=== PATIENT | female | born 2000 | race Caucasian/White ===

== ENCOUNTER 2022-02-16 17:01 | Emergency (ER) | payer OTHER, SELFPAY ==
[2022-02-16 17:07] VITALS: BP 132/78; PULSE 88; RESP 16; TEMP 36.6; O2SAT 99
--- NOTE | 2022-02-16 17:27 | ED.GENADULT ---
HPI - General Adult General Chief complaint: Unspecified Stated complaint: insect bite right arm Time Seen by Provider: 02/16/22 17:27 History of Present Illness HPI narrative: 21-year-old female presented the emergency department for evaluation of full body tingling that has been intermittent after she found a bug bite. Patient had a bug bite that she noticed on and on Thursday she had onset of body tingling. Patient denies any fevers. Patient denies any associated rash. Patient denies seeing a bug bite and was not exposed to ticks. Patient has been afebrile. Related Data Allergies Allergy/AdvReac Type Severity Reaction Status Date / Time Penicillins Allergy Unknown RASH Verified 02/16/22 17:09 Review of Systems Review of Systems: CONSTITUTIONAL: Subjective chills EYES: Denies visual changes, redness, or discharge. ENT: Denies rhinorrhea, congestion, sore throat, or otalgia. CARDIOVASCULAR: Denies chest pain, palpitations, or edema. RESPIRATORY: Denies cough or dyspnea. GASTROINTESTINAL: Denies abdominal pain, nausea, vomiting, or diarrhea. GENITOURINARY: Denies dysuria or hematuria. SKIN: See HPI MUSCULOSKELETAL: Denies back pain, joint pain, or myalgia. NEUROLOGIC: Denies headache, numbness, or weakness. Exam Narrative: APPEARANCE: Well appearing, no pain, no distress, well-nourished. HEAD: normocephalic, atraumatic. EYES: PERRLA/EOMI, conjunctivae clear. NOSE: Normal no drainage EARS:TMS clear with good light reflex. THROAT: Pharynx clear, no exudate. NECK: Supple. No adenopathy, no masses. RESPIRATORY: Airway patent, respirations nonlabored. Clear to auscultation bilaterally, no rales, rhonchi, wheezing. CARDIOVASCULAR: Regular rate and rhythm without murmurs rubs or gallops. ABDOMINAL: Soft, nontender, nondistended, normal bowel sounds MUSCULOSKELETAL: Moves all extremities. Strength/ROM intact, No edema, No calf tenderness. NEURO: Alert. Cranial nerves II through XII intact. Good gait. Good coordination SKIN: Small bug bite at the right AC, possible central scab versus retained foreign body. After cleansing the foreign body was removed. Course Course Emergency Course: Patient was updated on the treatment plan. Patient was encouraged to have close follow-up with her primary care physician. No concern for Lyme disease at this time. Patient does not complain of joint pain and patient has no erythema migrans. Patient was educated on reasons to return to the ED. Vital Signs Vital signs: Vital Signs Temperature 97.9 F 02/16/22 17:07 Pulse Rate 88 02/16/22 17:07 Respiratory Rate 16 02/16/22 17:07 Blood Pressure 132/78 02/16/22 17:07 Pulse Oximetry 99 02/16/22 17:07 Oxygen Delivery Room Air 02/16/22 17:07 Temperature 97.9 F 02/16/22 17:07 Pulse Rate 88 02/16/22 17:07 Respiratory Rate 16 02/16/22 17:07 Blood Pressure 132/78 02/16/22 17:07 Pulse Oximetry 99 02/16/22 17:07 Oxygen Delivery Room Air 02/16/22 17:07 Medical Decision Making Vital Signs Vital Signs: Vital Signs Temperature 97.9 F 02/16/22 17:07 Pulse Rate 88 02/16/22 17:07 Respiratory Rate 16 02/16/22 17:07 Blood Pressure 132/78 02/16/22 17:07 Pulse Oximetry 99 02/16/22 17:07 Oxygen Delivery Room Air 02/16/22 17:07 Temperature 97.9 F 02/16/22 17:07 Pulse Rate 88 02/16/22 17:07 Respiratory Rate 16 02/16/22 17:07 Blood Pressure 132/78 02/16/22 17:07 Pulse Oximetry 99 02/16/22 17:07 Oxygen Delivery Room Air 02/16/22 17:07 Discharge Plan Discharge Clinical Impression: Bug bite Patient Disposition: Home, Self-Care Condition: Stable Instructions: Antibiotic Form Additional Instructions: Have close follow-up with your primary care physician. If you have any worsening symptoms then please call or return to the emergency department. Follow-up/Referrals: Magen Roman MD [Physician] - PHYSICIAN,[employer] [Primary Care Provider] -
== END 2022-02-16 18:56 | disposition home or self-care (01) ==
PROVIDERS: Emergency Provider Emergency Medicine
DX: S50.361A Insect bite (nonvenomous) of right elbow, initial encounter (principal); W57.XXXA Bitten or stung by nonvenomous insect and other nonvenomous arthropods, initial encounter
CPT/HCPCS: 99281